=== PATIENT | female | born 1950 | race Caucasian/White ===

== ENCOUNTER 2018-07-28 07:09 | Day surgery (SDC) | payer OTHER ==
[~2018-07-28] VITALS: Ht 154.9 cm; Wt 59.0 kg
[2018-07-28] MEDS ORDERED: SIMETHICONE 40 MG/0.6 ML ML ONE (07:38)
[2018-07-28] MEDS ORDERED: fentaNYL CITRATE/PF 100 MCG/2 ML AMP ONE (07:41)
[2018-07-28] MEDS ORDERED: MIDAZOLAM HCL 5 MG/5 ML VIAL ONE (07:42)
[2018-07-28 10:24] VITALS: BP_SYST 111
== END 2018-07-28 10:00 | disposition home or self-care (01) ==
LOC: SDS 07:09
PROVIDERS: ATTEND Surgery
DX: K64.8 Other hemorrhoids (principal); K57.30 Diverticulosis of large intestine without perforation or abscess without bleeding; K29.70 Gastritis, unspecified, without bleeding; K62.5 Hemorrhage of anus and rectum; R10.9 Unspecified abdominal pain
CPT/HCPCS: 43235; 45378; J2250; J3010; J7030

== ENCOUNTER 2019-07-24 17:37 | Emergency (ER) | payer OTHER ==
[~2019-07-24] VITALS: Ht 154.9 cm; Wt 54.4 kg
[2019-07-24 17:37] VITALS: BP_SYST 146
[2019-07-24] MEDS ORDERED: NACL 0.9% 1,000 ML IV ONE (17:46)
[2019-07-24] MEDS ORDERED: IPRATROPIUM BROM 0.5 MG/2.5 ML VIAL.NEB (ATROVENT) INH ONE ×2 (18:00→18:14)
[2019-07-24] MEDS ORDERED: DIPHENHYDRAMINE INJ 50 MG/ML VIAL IVP ONE (18:00)
[2019-07-24] MEDS ORDERED: methylPREDNISolone SOD SUCC/PF 62.5 MG/ML VIAL IVP ONE (18:00)
[2019-07-24] MEDS ORDERED: ALBUTEROL SULFATE 0.083% 2.5 MG/3 ML VIAL.NEB INH ONE ×2 (18:00→18:14)
[2019-07-24] MEDS ORDERED: FAMOTIDINE PF 20 MG/2 ML VIAL IVP ONE (18:00)
[2019-07-24 18:40] LABS: BASOPHILS # (AUTO) 0.1 K/uL (0.0-0.2); BASOPHILS % (AUTO) 0.8 % (0.0-2.0); EOSINOPHILS # (AUTO) 0.2 K/uL (0.0-0.4); EOSINOPHILS % (AUTO) 2.4 % (0.0-4.0); HEMATOCRIT 34.8 % (36-48); HEMOGLOBIN 11.7 g/dL (12.0-16.0); LYMPHOCYTES # (AUTO) 2.8 K/uL (1.0-5.5); LYMPHOCYTES % (AUTO) 44.6 % (20.5-51.5); MEAN CORPUSCULAR HEMOGLOBIN 33 pg (27-31); MEAN CORPUSCULAR HGB CONC 34 % (32-36); MEAN CORPUSCULAR VOLUME 98 fL (79.0-98.0); MONOCYTES # (AUTO) 0.4 K/uL (0.0-1.0); MONOCYTES % (AUTO) 6.7 % (1.7-9.3); NEUTROPHILS # (AUTO) 2.9 K/uL (1.8-7.7); NEUTROPHILS % (AUTO) 45.5 % (40.0-70.0); PLATELET COUNT (AUTO) 275 K/uL (130-430); RED BLOOD CELL COUNT(AUTO) 3.54 MIL/uL (4.2-6.2); RED CELL DISTRIBUTION WIDTH 12.2 % (9.0-15.0); WHITE BLOOD COUNT (AUTO) 6.3 K/uL (4.8-10.8)
[2019-07-24 18:48] LABS: CALCIUM 8.4 mg/dL (8.4-11.0); POTASSIUM 3.3 mmol/L (3.5-5.1)
[2019-07-24 19:03] LABS: ALBUMIN 3.5 g/dL (3.4-4.8); FREE T4 (FREE THYROXINE) 1.3 ng/dl (0.8-1.5); THYROID STIMULATING HORMONE 0.25 uIu/mL (0.36-3.74); TOTAL BILIRUBIN 0.4 mg/dL (0.0-1.0)
[2019-07-24 19:08] VITALS: BP_SYST 129
== END 2019-07-24 19:08 | disposition home or self-care (01) ==
LOC: SED 17:37
DX: T78.40XA Allergy, unspecified, initial encounter (principal); L50.9 Urticaria, unspecified; Z88.1 Allergy status to other antibiotic agents; X58.XXXA Exposure to other specified factors, initial encounter
CPT/HCPCS: 36415; 80053; 83690; 84439; 84443; 84479; 85025; 94640; 96374; 96375; 99284; J1200; J2930; J3490; J7030; J7613

== ENCOUNTER 2019-10-06 11:24 | Day surgery (SDC) | payer OTHER, SELFPAY ==
[~2019-10-06] VITALS: Ht 154.9 cm; Wt 54.4 kg
[2019-10-06] MEDS ORDERED: fentaNYL CITRATE/PF 100 MCG/2 ML AMP ONE (12:08)
[2019-10-06] MEDS ORDERED: MIDAZOLAM HCL 5 MG/5 ML VIAL ONE (12:09)
[2019-10-06] MEDS ORDERED: SIMETHICONE 40 MG/0.6 ML ML ONE (12:09)
[2019-10-06 13:45] VITALS: BP_SYST 100
== END 2019-10-06 15:00 | disposition home or self-care (01) ==
LOC: SDS 11:24 → SMU 11:25 → SDS 15:00
PROVIDERS: ATTEND Surgery
DX: R13.10 Dysphagia, unspecified (principal); K29.70 Gastritis, unspecified, without bleeding; Z11.59 Encounter for screening for other viral diseases
CPT/HCPCS: 43239; 88305; 88312; 88313; G0378; J2250; J3010; J7030; U0003

== ENCOUNTER 2019-11-30 19:23 | Emergency (ER) | payer OTHER, SELFPAY ==
[~2019-11-30] VITALS: Ht 154.9 cm; Wt 54.4 kg
--- NOTE | 2019-11-30 19:24 | NUR ---
Patient to ER bed 1 to gown for evaluation. Side rails up. Report given to CARINA.
[2019-11-30 19:25] VITALS: BP_SYST 123
--- NOTE | 2019-11-30 19:25 | NUR ---
PT AAO AND AMBULATORY C/O ALLERGIC REACTION AFTER INGESTING SHRIMP. PT HAD AN ALLERGIC REACTION IN THE PAST TO SHRIMP AND REQUIRED EPI AT THAT TIME. PT DENIES SOB OR DIFFICULTY SWALLOWING BUT DOES HAVE WELTS PRESENT OVER ENTIRE BODY.
--- NOTE | 2019-11-30 19:26 | NUR ---
ER at bedside examining patient.
[2019-11-30] MEDS ORDERED: methylPREDNISolone SOD SUCC/PF 62.5 MG/ML VIAL IVP ONE (19:45)
[2019-11-30] MEDS ORDERED: DIPHENHYDRAMINE INJ 50 MG/ML VIAL IM ONE (19:45)
[2019-11-30] MEDS ORDERED: FAMOTIDINE 20 MG TABLET PO ONE (19:45)
[2019-11-30] MEDS ORDERED: EPINEPHrine 1 MG/ML AMP IM ONE (19:45)
[2019-11-30] MEDS ORDERED: methylPREDNISolone SOD SUCC/PF 62.5 MG/ML VIAL IM ONE (19:45)
[2019-11-30 21:33] VITALS: BP_SYST 123
--- NOTE | 2019-11-30 21:33 | NUR ---
Patient given written and verbal discharge instructions and verbalizes understanding. ER MD discussed with patient the results and treatment provided. Patient in stable condition. ID arm band removed. Rx of FAMOTIDINE PREDNISONE AND EPI PEN given. Patient educated on pain management and to follow up with PMD. Pain Scale 0/10. Opportunity for questions provided and answered. Medication side effect fact sheet provided.
== END 2019-11-30 21:33 | disposition home or self-care (01) ==
LOC: SED 19:23
DX: T78.40XA Allergy, unspecified, initial encounter (principal); E07.9 Disorder of thyroid, unspecified; Z88.1 Allergy status to other antibiotic agents; Z91.013 Allergy to seafood; X58.XXXA Exposure to other specified factors, initial encounter
CPT/HCPCS: 96372; 99284; J0171; J1200; J2930